=== PATIENT | male | born 1975 | race American Indian/Alaskan Native ===

== ENCOUNTER 2018-02-17 16:33 | Emergency (ER) | payer MEDICAID ==
[2018-02-17] MEDS ORDERED: NACL 0.9% 1000 ML 1,000 ML IV ONE (16:51)
--- NOTE | 2018-02-17 18:01 | XRay Report ---
FINAL REPORT EXAM: XR CHEST ROUTINE 2V HISTORY: persistant cough, possible hemoptisis TECHNIQUE: Two view chest PA and lateral PRIORS: None. FINDINGS: Cardiac and mediastinal contours are unremarkable. No focal pulmonary infiltrate is identified. No pleural fluid collection seen. Pulmonary vasculature is unremarkable. IMPRESSION: Negative two-view chest
[2018-02-17 21:38] LABS: Basophils % (Auto) 0.5 % (0.0-1.8); Hematocrit 37.7 % (35.5-45.6); Hemoglobin 12.7 gm/dl (11.8-15.2); Lymphocytes # (Auto) 1.9 K/mm3 (1.2-5.4); Lymphocytes % (Auto) 40.8 % (13.4-35.0); Mean Corpuscular HGB Conc 34 % (32-34); Mean Corpuscular Hemoglobin 29 pg (28-32); Mean Corpuscular Volume 87 fl (84-94); Monocytes # (Auto) 0.6 K/mm3 (0.0-0.8); Monocytes % (Auto) 11.9 % (0.0-7.3); Platelet Count 281 K/mm3 (140-440); Red Blood Count 4.34 M/mm3 (3.65-5.03); Red Cell Distribution Width 14.2 % (13.2-15.2)
[2018-02-17 21:49] LABS: INR 0.95 (0.87-1.13)
[2018-02-17 21:56] LABS: Alanine Aminotransferase 10 units/L (7-56); Albumin 4.6 g/dL (3.9-5); BUN/Creatinine Ratio 19; Blood Urea Nitrogen 15 mg/dL (9-20); Calcium 9.6 mg/dL (8.4-10.2); Hemolysis Index 22; Lipase 30 units/L (13-60)
--- NOTE | 2018-02-17 23:36 | Emergency Department Report ---
ED GI Bleed HPI - General Chief complaint: GI Bleed Stated complaint: VOMITING BLOOD Time Seen by Provider: 02/17/18 23:31 Source: patient Mode of arrival: Ambulatory Limitations: No Limitations - History of Present Illness Initial comments: 42-year-old man brought in by pharmacy intake technician with reports that he has been having intermittent cough and upper vomiting of blood, which is apparently been going on for the past couple of weeks. Patient is mentally retarded, requires caregiver, and lives in personal fdc, where he has been for the past year. When questioned, caregiver reports patient has been filling his waste basket with bloody tissues for the past day, which are associated with a persistent cough. There is a questionable history of past tuberculosis, the patient was evaluated in the past couple of weeks for possible tuberculosis by his primary care physician, Dr. Buckner, but reportedly this was negative, with a normal chest x-ray at that time. It apparent that a PPD was done, but patient scratched it, the results of that were inconclusive. Caregiver is on aware of any additional laboratory testing for TB actively, such as PCR. There are no records brought with patient. Patient has not had any coughing or hemoptysis since arrival in the emergency department. Patient is otherwise in good health, takes no routine medications, but has no history of prior GI bleed or ulcers, and on questioning about patient spell habits, he has had passing small firm brown stools every day or 2, which is his norm, without evidence of melena or fresh blood. MD complaint: gross hematemesis -: week(s) (intermittent vomiting blood for 3 weeks, significant bleeding/ hematemesis today), This morning Severity scale (0 -10): 0 Quality: painless Associated Symptoms: denies other symptoms Treatments Prior to Arrival: none - Related Data Allergies Allergy/AdvReac Type Severity Reaction Status Date / Time No Known Allergies Allergy Unverified 02/17/18 16:50 ED Review of Systems ROS: Stated complaint: VOMITING BLOOD Other details as noted in HPI Comment: patient history difficult to obtain due to mental retardation, but patient lives in a care facility, and much of history comes from nursing notes Constitutional: no symptoms reported Eyes: denies: eye pain, eye discharge, vision change ENT: denies: ear pain, throat pain Respiratory: cough, other (evaluation for possible TB, reportedly negative) Cardiovascular: denies: chest pain Endocrine: denies: excessive sweating, flushing, increased thirst, increased urine Gastrointestinal: denies: abdominal pain Genitourinary: denies: urgency, dysuria Musculoskeletal: denies: back pain, arthralgia Neurological: denies: headache, weakness Psychiatric: other (mild mental retardation) ED Past Medical Hx - Past Medical History Hx Psychiatric Treatment: Yes (mental retardation) Hx Tuberculosis: Yes (possible TB, reportedly negative by chest x-ray or evaluation) Additional medical history: MILD MR, questionable history of past TB, recent negative TB evaluation - Surgical History Past Surgical History?: No - Family History Family history: no significant - Social History Smoking Status: Never Smoker Substance Use Type: None Other Social History: Lives in personal fdc secondary to mental retardation ED Physical Exam - General Limitations: Other (mental retardation) General appearance: alert, in no apparent distress - Head Head exam: Present: atraumatic, normocephalic - Eye Eye exam: Present: normal appearance - ENT ENT exam: Present: mucous membranes moist - Neck Neck exam: Present: normal inspection - Respiratory Respiratory exam: Present: normal lung sounds bilaterally. Absent: respiratory distress, wheezes, rales, rhonchi, accessory muscle use, decreased breath sounds - Cardiovascular Cardiovascular Exam: Present: regular rate, normal rhythm. Absent: systolic murmur, diastolic murmur, rubs, gallop - GI/Abdominal GI/Abdominal exam: Present: soft, normal bowel sounds - Rectal Rectal exam: Present: deferred - Extremities Exam Extremities exam: Present: normal inspection - Back Exam Back exam: Present: normal inspection - Neurological Exam Neurological exam: Present: alert, oriented X3 - Psychiatric Psychiatric exam: Present: normal affect, normal mood - Skin Skin exam: Present: warm, dry, intact, normal color. Absent: rash ED Course Vital Signs 02/17/18 02/17/18 02/17/18 16:43 21:33 21:34 Temperature 98.8 F Pulse Rate 73 61 Respiratory 18 16 16 Rate Blood Pressure 117/73 Blood Pressure 134/78 [Left] O2 Sat by Pulse 99 100 100 Oximetry 02/18/18 04:00 Temperature Pulse Rate 74 Respiratory 16 Rate Blood Pressure Blood Pressure 126/70 [Left] O2 Sat by Pulse 98 Oximetry - Reevaluation(s) Reevaluation #1: 02/18/18 03:11 Patient is stable on repeat examination, vital signs are unchanged, and hemoglobin on recheck has only dropped 1 point from 12.7-11.5, which is insignificant after rehydration with IV fluids. Rectal examination performed for possible GI bleed source, but stool is firm, brown, and Hemoccult is negative. ED Medical Decision Making - Lab Data Result diagrams: 02/17/18 23:46 02/17/18 21:17 - EKG Data -: EKG Interpreted by Me EKG shows normal: sinus rhythm Rate: normal - EKG Data When compared to previous EKG there are: previous EKG unavailable Interpretation: no acute changes - Radiology Data Radiology results: report reviewed No acute cardiopulmonary findings on x-ray, heart size normal, no consolidation or opacifications, no abnormal masses or nodularity CT angiography of chest performed with IV contrast, concern for neoplasia or undiagnosed TB, but these were negative, and CT angiography was normal. - Medical Decision Making Patient is clinically stable, has no active signs of bleeding, and in fact has no hematemesis or hemoptysis at all in the emergency department. He was given sack while waiting, tolerated well, and repeat examination is negative. Patient is stable for discharge home, can have follow-up examination with his primary care physician, and pulmonology or gastroenterology evaluation as determined on repeat outpatient examination. - Differential Diagnosis hematemesis, hemoptysis, chronic bronchitis, tuberculosis Critical care attestation.: If time is entered above; I have spent that time in minutes in the direct care of this critically ill patient, excluding procedure time. ED Disposition Disposition: DC-01 TO HOME OR SELFCARE Is pt being admited?: No Does the pt Need Aspirin: No Condition: Good Instructions: Acute Hemoptysis (ED) Additional Instructions: Evaluation today is stable, blood work is stable, and there are no signs of active bleeding. Have recheck with primary care doctor next week, and have further evaluation by lead janitor or environmental sustainability manager as needed for persistent symptoms. No restrictions in the meantime. Referrals: PRIMARY CAREMD [Primary Care Provider] - 3-5 Days Forms: Accompanied Note Time of Disposition: 03:14 Print Language: AUSTRIAN
[2018-02-18 00:04] LABS: Hematocrit 35.6 % (35.5-45.6); Hemoglobin 11.5 gm/dl (11.8-15.2)
--- NOTE | 2018-02-18 02:18 | Cat Scan Report ---
FINAL REPORT PROCEDURE: CT CHEST W CON TECHNIQUE: Computerized axial tomography of the chest was performed during the IV injection of iodinated nonionic contrast. HISTORY: hemoptysis, past history tuberculosis COMPARISON: No prior studies are available for comparison. TECHNICAL QUALITY: Satisfactory. FINDINGS: Heart and pericardium: Normal. Thoracic aorta: Normal. Pulmonary vasculature: Normal. Lymph nodes: No enlarged thoracic lymph nodes. Lungs: Normal. Pleural space: No effusion, thickening, or pneumothorax. Musculoskeletal structures: No significant abnormality. Upper abdominal structures: No significant abnormality. IMPRESSION: Normal heart and lungs.
[2018-02-18 04:45] VITALS: BP 126/70
== END 2018-02-18 04:45 | disposition home or self-care (01) ==
LOC: ED 16:33
DX: K92.0 Hematemesis (principal); R04.2 Hemoptysis; F79 Unspecified intellectual disabilities
CPT/HCPCS: 36415; 71046; 71260; 80053; 82271; 83690; 85014; 85018; 85025; 85610; 85730; 86850; 86900; 86901; 93005; 93010; 99285; Q9967

== ENCOUNTER 2021-01-25 13:02 | Emergency (ER) | payer MEDICAID ==
[2021-01-25 13:37] LABS: Basophils # (Auto) 0.1 K/mm3 (0.0-0.1); Basophils % (Auto) 2.2 % (0.0-1.8); Eosinophils # (Auto) 0.1 K/mm3 (0.0-0.4); Eosinophils % (Auto) 2.7 % (0.0-4.3); Hematocrit 36.4 % (35.5-45.6); Hemoglobin 12.2 gm/dl (11.8-15.2); Lymphocytes # (Auto) 1.1 K/mm3 (1.2-5.4); Lymphocytes % (Auto) 25.9 % (13.4-35.0); Mean Corpuscular HGB Conc 34 % (32-34); Mean Corpuscular Volume 88 fl (84-94); Monocytes # (Auto) 0.5 K/mm3 (0.0-0.8); Platelet Count 243 K/mm3 (140-440); Red Blood Count 4.16 M/mm3 (3.65-5.03); Red Cell Distribution Width 14.7 % (13.2-15.2)
--- NOTE | 2021-01-25 13:50 | Emergency Department Report ---
ED General Adult HPI - General Chief complaint: Abdominal Pain Stated complaint: CONSTIPATION PUI?: No Time Seen by Provider: 01/25/21 13:38 Source: whanau support worker (Patient is accompanied by caregiver from his facility. He is not accompanied by friends or family at this time), RN notes reviewed, old records reviewed Mode of arrival: Ambulatory Limitations: Other (Patient developmentally delayed) - History of Present Illness Initial comments: The patient was evaluated in the emergency department for symptoms described in the history of present illness. He/she was evaluated in the context of the global COVID-19 pandemic, which necessitated consideration that the patient might be at risk for infection with the virus that causes COVID-19. Institutional protocols and algorithms that pertain to the evaluation of patients at risk for COVID-19 are in a state of rapid change based on information released by regulatory bodies including the CDC and federal and state organizations. These policies and algorithms were followed during the patient's care in the emergency department. Please note that these policies, procedures and recommendations changed on a rapid basis. This is a 45-year-old gentleman, who has a history of developmental delay, who was brought to the hospital by a caregiver [facility], with a complaint of possible constipation. The patient himself is nonverbal. All of the history is obtained from his caregiver. His caregiver states the patient has not had a bowel movement for 1 week. They have tried milk of magnesia [id number], with no improvement in symptoms. No other complaints. She specifically denies nausea, vomiting, fever, chills, lethargy, irritability, urinary frequency, foul-smelling urine. She states the patient is at his baseline, and essentially came here because "to give him any other medication, like MiraLAX, we will need a doctor's note." The patient only takes Risperdal, but no other prescription medications. His caregiver indicates that he appears to be at his baseline, with the exception of not having had a bowel movement for 1 week. She does not know if he has had any surgeries. The patient himself is nonverbal, but awake, moving 4 extremities, and will follow some commands. -: Gradual, days(s) Consistency: constant Improves with: none Worsens with: none Associated Symptoms: denies other symptoms - Related Data Previous Rx's Medication Instructions Recorded Last Taken Type polyethylene glycoL 3350 [Miralax 17 gm PO QDAY #30 packet 01/25/21 Unknown Rx 3350] Allergies Allergy/AdvReac Type Severity Reaction Status Date / Time No Known Allergies Allergy Unverified 02/17/18 16:50 ED Review of Systems ROS: Stated complaint: CONSTIPATION Other details as noted in HPI Comment: Unobtainable due to pts medical conditions (Review of systems obtained from caregiver) Constitutional: denies: fever Eyes: denies: eye discharge Respiratory: denies: cough Cardiovascular: denies: syncope Gastrointestinal: constipation. denies: nausea, vomiting Genitourinary: denies: frequency Neurological: denies: weakness Hematological/Lymphatic: denies: easy bleeding ED Past Medical Hx - Past Medical History Previous Medical History?: Yes Hx Psychiatric Treatment: Yes (mental retardation) Hx Tuberculosis: Yes (possible TB, reportedly negative by chest x-ray or evaluation) Additional medical history: MILD MR, questionable history of past TB, recent negative TB evaluation - Surgical History Past Surgical History?: No - Social History Smoking Status: Never Smoker Substance Use Type: None - Medications Home Medications: Home Medications Medication Instructions Recorded Confirmed Last Taken Type polyethylene glycoL 3350 [Miralax 17 gm PO QDAY #30 packet 01/25/21 Unknown Rx 3350] ED Physical Exam - General Limitations: Other (The patient is nonverbal) General appearance: in no apparent distress - Head Head exam: Present: atraumatic, normocephalic - Eye Eye exam: Present: normal appearance, EOMI - ENT ENT exam: Present: normal exam, normal orophraynx, mucous membranes moist, normal external ear exam - Neck Neck exam: Present: normal inspection, full ROM. Absent: tenderness, meningismus - Respiratory Respiratory exam: Present: normal lung sounds bilaterally. Absent: respiratory distress, wheezes, rales, rhonchi, stridor - Cardiovascular Cardiovascular Exam: Present: regular rate, normal rhythm, normal heart sounds. Absent: bradycardia, tachycardia, irregular rhythm, systolic murmur, diastolic murmur, rubs, gallop - GI/Abdominal GI/Abdominal exam: Present: soft, guarding (The patient flexes abdominal musculature during his examination). Absent: rebound, rigid, normal bowel sounds (Diminished bowel sounds), pulsatile mass - Rectal Rectal exam: Present: deferred - Extremities Exam Extremities exam: Present: normal inspection, full ROM, other (2+ pulses noted in the bilateral upper and lower extremities. There is no palpable cord. negative Homans sign. Muscular compartments are soft. The pelvis is stable.). Absent: pedal edema, calf tenderness - Back Exam Back exam: Present: normal inspection. Absent: tenderness, CVA tenderness (R), CVA tenderness (L), paraspinal tenderness, vertebral tenderness - Neurological Exam Neurological exam: Present: alert (The patient is awake. The patient follows commands. The patient is nonverbal.), normal gait, other (There is no facial droop. The tongue is midline. The extraocular movements are intact bilaterally.) - Psychiatric Psychiatric exam: Present: other (The patient is nonverbal.) - Skin Skin exam: Present: warm, dry, intact, normal color. Absent: rash ED Course Vital Signs 01/25/21 01/25/21 01/25/21 13:07 13:58 14:02 Temperature 98.3 F Pulse Rate 73 55 L Respiratory 20 8 L Rate Blood Pressure 98/73 Blood Pressure 140/89 [Left] O2 Sat by Pulse 100 100 100 Oximetry 01/25/21 15:01 Temperature Pulse Rate Respiratory Rate Blood Pressure 140/89 Blood Pressure [Left] O2 Sat by Pulse 100 Oximetry - Reevaluation(s) Reevaluation #1: 01/25/21 13:49 Differential diagnosis, including the not limited to: Constipation, obstipation, volvulus, obstruction Assessment and plan: 45-year-old gentleman, developmentally delayed, nonverbal, currently on Risperdal, but no other medications as per caregiver, with a complaint of constipation. Patient flexes his abdominal wall when I examined him, and he is nonverbal. Given limited history/examination, we will obtain a CT scan of the abdomen pelvis with oral contrast to evaluate for obstruction versus constipation. Discussed this with his caregiver, who verbalized understanding. The patient is otherwise fairly slender, afebrile, with reassuring vital signs, and does not appear to be in any acute distress. ED Medical Decision Making - Lab Data Result diagrams: 01/25/21 13:27 01/25/21 13:27 Vital Signs 01/25/21 13:07 Temperature 98.3 F Pulse Rate 73 Respiratory 20 Rate Blood Pressure 98/73 O2 Sat by Pulse 100 Oximetry Lab Results 01/25/21 Range/Units 13:27 WBC 4.4 L (4.5-11.0) K/mm3 RBC 4.16 (3.65-5.03) M/mm3 Hgb 12.2 (11.8-15.2) gm/dl Hct 36.4 (35.5-45.6) % MCV 88 (84-94) fl MCH 29 (28-32) pg MCHC 34 (32-34) % RDW 14.7 (13.2-15.2) % Plt Count 243 (140-440) K/mm3 Lymph % (Auto) 25.9 (13.4-35.0) % [place] % (Auto) 12.0 H (0.0-7.3) % Eos % (Auto) 2.7 (0.0-4.3) % Baso % (Auto) 2.2 H (0.0-1.8) % Lymph # (Auto) 1.1 L (1.2-5.4) K/mm3 [place] # (Auto) 0.5 (0.0-0.8) K/mm3 Eos # (Auto) 0.1 (0.0-0.4) K/mm3 Baso # (Auto) 0.1 (0.0-0.1) K/mm3 Seg Neutrophils % 57.2 (40.0-70.0) % Seg Neutrophils # 2.5 (1.8-7.7) K/mm3 Vital Signs 01/25/21 01/25/21 01/25/21 13:07 13:58 14:02 Temperature 98.3 F Pulse Rate 73 55 L Respiratory 20 8 L Rate Blood Pressure 98/73 Blood Pressure 140/89 [Left] O2 Sat by Pulse 100 100 100 Oximetry 01/25/21 15:01 Temperature Pulse Rate Respiratory Rate Blood Pressure 140/89 Blood Pressure [Left] O2 Sat by Pulse 100 Oximetry - Radiology Data Radiology results: report reviewed, image reviewed CT ABDOMEN AND PELVIS WITHOUT CONTRAST INDICATION / CLINICAL INFORMATION: No bowel movement for 1 week, constipation versus obstruction. TECHNIQUE: Axial CT images were obtained through the abdomen and pelvis without IV contrast. All CT scans at this location are performed using CT dose reduction for ALARA by means of automated exposure control. COMPARISON: None available. FINDINGS: LOWER CHEST: Lung bases are clear. Mild bilateral symmetric gynecomastia. LIVER: No significant abnormality. GALLBLADDER: No significant abnormality. BILE DUCTS: No significant abnormality. PANCREAS: No significant abnormality. SPLEEN: No significant abnormality. ADRENALS: No significant abnormality. RIGHT KIDNEY / URETER: No significant abnormality. LEFT KIDNEY / URETER: No significant abnormality. STOMACH / SMALL BOWEL: No significant abnormality. COLON: Moderate amount of fecal material throughout the colon with a very large amount of fecal material in the rectal vault. No mass or other source of obstruction identified. APPENDIX: No significant abnormality. PERITONEUM: No free fluid. No free air. No fluid collection. LYMPH NODES: No significant adenopathy. AORTA / ARTERIES: No significant abnormality. IVC / VEINS: No significant abnormality. URINARY BLADDER: Bladder is displaced anteriorly and to the left by the rectum. No acute abnormality. REPRODUCTIVE ORGANS: No significant abnormality. ADDITIONAL FINDINGS: None. SKELETAL SYSTEM: No significant abnormality. IMPRESSION: 1. Rectal fecal impaction. Signer Name: Love Hensley MD Signed: 01/25/2021 2:15 PM Workstation Name: [id number] Critical care attestation.: If time is entered above; I have spent that time in minutes in the direct care of this critically ill patient, excluding procedure time. ED Disposition Clinical Impression: Constipation Qualifiers: Constipation type: other constipation type Qualified Code(s): K59.09 - Other constipation Disposition: - TO HOME OR SELFCARE Is pt being admited?: No Does the pt Need Aspirin: No Condition: Stable Instructions: Constipation, Adult, [id number] Additional Instructions: Patient was found to have constipation today. Constipation takes typically 3 to 6 weeks to resolve. Mainstay treatment for constipation is going to be diet and lifestyle. Therefore, the patient should drink at least 6 cups of water per day, and eat plenty of fiber, vegetables, and lean protein. The patient may also drink prune juice [id number] to assist with bowel movements. Patient will be given a prescription for MiraLAX, to assist with having a bowel movement, however, the aforementioned diet lifestyle modifications would be the ideal treatment for constipation. We do recommend follow-up with a primary care doctor within the next month. Please return to the emergency room right away with new pain, worsened pain, migration of pain, projectile vomiting, change in mental status, confusion, inability to tolerate liquid feeds, new, worsened or different symptoms not present on the initial emergency room evaluation peer Referrals: YOHAN VINCENT MD [Primary Care Provider] - 3-5 Days Time of Disposition: 15:30 (Patient will be discharged back to snf after enema, with caregiver)
[2021-01-25 13:59] LABS: Alanine Aminotransferase 14 units/L (7-56); Albumin 4.3 g/dL (3.9-5); BUN/Creatinine Ratio 13; Blood Urea Nitrogen 13 mg/dL (9-20); Calcium 9.1 mg/dL (8.4-10.2); Hemolysis Index 11
--- NOTE | 2021-01-25 15:19 | Cat Scan Report ---
CT ABDOMEN AND PELVIS WITHOUT CONTRAST INDICATION / CLINICAL INFORMATION: No bowel movement for 1 week, constipation versus obstruction. TECHNIQUE: Axial CT images were obtained through the abdomen and pelvis without IV contrast. All CT scans at this location are performed using CT dose reduction for ALARA by means of automated exposure control. COMPARISON: None available. FINDINGS: LOWER CHEST: Lung bases are clear. Mild bilateral symmetric gynecomastia. LIVER: No significant abnormality. GALLBLADDER: No significant abnormality. BILE DUCTS: No significant abnormality. PANCREAS: No significant abnormality. SPLEEN: No significant abnormality. ADRENALS: No significant abnormality. RIGHT KIDNEY / URETER: No significant abnormality. LEFT KIDNEY / URETER: No significant abnormality. STOMACH / SMALL BOWEL: No significant abnormality. COLON: Moderate amount of fecal material throughout the colon with a very large amount of fecal mater ial in the rectal vault. No mass or other source of obstruction identified. APPENDIX: No significant abnormality. PERITONEUM: No free fluid. No free air. No fluid collection. LYMPH NODES: No significant adenopathy. AORTA / ARTERIES: No significant abnormality. IVC / VEINS: No significant abnormality. URINARY BLADDER: Bladder is displaced anteriorly and to the left by the rectum. No acute abnormality. REPRODUCTIVE ORGANS: No significant abnormality. ADDITIONAL FINDINGS: None. SKELETAL SYSTEM: No significant abnormality. IMPRESSION: 1. Rectal fecal impaction. Signer Name: Love Hensley MD Signed: 01/25/2021 3:15 PM Workstation Name: [id number]
[2021-01-25 18:41] VITALS: BP 128/85
== END 2021-01-25 16:30 | disposition home or self-care (01) ==
LOC: ED 13:02
DX: K59.00 Constipation, unspecified (principal); Z79.899 Other long term (current) drug therapy
CPT/HCPCS: 36415; 74176; 80053; 85025